=== PATIENT | male | born 1980 | race Caucasian/White ===

== ENCOUNTER 2017-07-10 13:55 | Emergency (ER) | payer SELFPAY ==
[~2017-07-10] VITALS: Ht 165.1 cm; Wt 63.5 kg
[2017-07-10 15:08] LABS: BASOPHIL# 0.1 X10e3 (0-0.3); BASOPHIL% 1.3 % (0-2.5); DIFF IND NO; EOSINOPHIL# 0.3 X10e3 (0-0.7); HEMATOCRIT 41.4 % (38.0-50.0); HEMOGLOBIN 14.2 gm/dL (13.0-16.0); LYMPHOCYTE# 1.7 X10e3 (1.0-3.5); LYMPHOCYTE% 19.3 % (17.0-45.0); MEAN CORPUSCULAR HEMOGLOBIN 30.3 PG (28-34); MEAN CORPUSCULAR HGB CONC 34.4 g/dL (30-36); MONOCYTE# 0.5 X10e3 (0-1.0); MONOCYTE% 5.3 % (3.0-12.0); NEUTROPHIL# 6.1 X10e3 (1.5-7.1); NEUTROPHIL% 70.1 % (40-75); PLATELET COUNT 151 X10e3 (140-420); RED CELL DISTRIBUTION WIDTH 12.5 % (11.0-15.5); WHITE BLOOD COUNT 8.7 X10e3 (4.0-10.5)
[2017-07-10 15:34] LABS: ALBUMIN SERUM 4.1 g/dL (3.5-5.0); ALCOHOL BLOOD <5 mg/dL (0); ALKALINE PHOSPHATASE 55 U/L (32-92); ALT (SGPT) 16 U/L (10-40); AST (SGOT) 25 U/L (10-42); BILIRUBIN, DIRECT <0.1 mg/dL (0.0-0.2); BILIRUBIN,INDIRECT 0.4 mg/dL (0.0-0.9); BILIRUBIN,TOTAL 0.5 mg/dL (0.2-2.0); PROTEIN TOTAL SERUM 6.9 g/dL (6.0-8.3)
[2017-07-10 16:41] LABS: AMPHETAMINE POS (NEG); BARBITURATES NEG (NEG); BENZODIAZEPINES NEG (NEG); COCAINE NEG (NEG); MARIJUANA POS (NEG); OPIATES NEG (NEG); TRICYCLIC ANTIDEPRESSANTS NEG (NEG); U METHADONE POS (NEG)
== END 2017-07-10 18:04 | disposition home or self-care (01) ==
LOC: CED 13:55
PROVIDERS: Emergency Medicine
DX: G40.409 Other generalized epilepsy and epileptic syndromes, not intractable, without status epilepticus (principal); F19.10 Other psychoactive substance abuse, uncomplicated; F17.210 Nicotine dependence, cigarettes, uncomplicated
CPT/HCPCS: 36415; 80076; 80307; 85025; 99284; G0480